=== PATIENT | female | born 1960 | race Caucasian/White ===

== ENCOUNTER 2018-07-23 09:01 | Outpatient (CLI) | payer BC | END 2018-07-23 09:02 | disposition home or self-care (01) | LOC: BICMRI 09:01 | PROVIDERS: ATTEND Family Medicine | DX: Z12.31 Encounter for screening mammogram for malignant neoplasm of breast (principal); M47.22 Other spondylosis with radiculopathy, cervical region; M99.81 Other biomechanical lesions of cervical region; R92.1 Mammographic calcification found on diagnostic imaging of breast | CPT/HCPCS: 72141; 77063; 77067 ==

== ENCOUNTER 2019-03-22 07:36 | Outpatient (CLI) | payer BC ==
--- NOTE | 2019-03-22 08:44 | MRI ---
MRI CERVICAL SPINE WITHOUT IV CONTRAST: HISTORY: M47.12, cervical spondylosis with myelopathy. FINDINGS: There are generalized disk desiccation changes and ligament and facet hypertrophic changes. The visu alized brain and soft tissue neck appear unremarkable. Minimal abnormal marrow signal involving the C6-C7 peridiskal region, evidence for type I endplate changes. C2-C3: No significant canal, lateral recess, or foraminal stenosis. C3-C4: Moderate left foraminal stenosis. C4-C5: Diffuse disk osteophytosis with mild lateral recess narrowing and mild bilateral foraminal st enosis. C5-C6: Moderate generalized disk osteophytosis with mild central canal and moderate lateral recess s tenosis and moderate to severe bilateral foraminal stenosis. C6-C7: Diffuse disk osteophytosis with moderate bilateral recess stenosis, mild central canal stenos is, and moderate left foraminal stenosis. C7-T1: Unremarkable. IMPRESSION: 1. Multilevel variable severity canal, lateral recess, and foraminal stenosis, most marked at C5-C6. 2. Mixed, including some type I, endplate changes at C6-C7. 3. No spinal cord mass or alexander spinal cord compression. POS: [facility]
== END 2019-03-22 07:37 | disposition home or self-care (01) ==
LOC: TBSIIMAG 07:36
PROVIDERS: ATTEND Specialist
DX: M47.12 Other spondylosis with myelopathy, cervical region (principal); M48.02 Spinal stenosis, cervical region
CPT/HCPCS: 72141

== ENCOUNTER 2019-05-13 05:49 | Day surgery (SDC) | payer BC ==
[2019-05-10 15:49] VITALS: BMI 32.9
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
[2019-05-13] MEDS ORDERED: Thrombin 5000 UNITS/5 ML VIAL ONE (06:25)
[2019-05-13] MEDS ORDERED: Midazolam HCl 2 mg/2 ml Vial ONE (06:54)
[2019-05-13] MEDS ORDERED: Fentanyl 100 MCG/2 ML VIAL ONE ×3 (06:54→08:39)
[2019-05-13] MEDS ORDERED: Morphine 4 MG/ML VIAL ONE (08:47)
[2019-05-13] MEDS ORDERED: Morphine 2 MG/ML SYRINGE ONE (08:56)
[2019-05-13] MEDS ORDERED: HYDROcodone/Acetaminophen 5/325 mg Tablet ONE (10:26)
--- NOTE | 2019-05-13 11:48 | OP ---
DATE OF PROCEDURE: 05/13/2019 DAYCARE DIRECTOR: Chaparro Mora PA-C INDICATION: Pain. DIAGNOSIS: Cervical stenosis with cervical radiculopathy and prior evidence of cervical spinal cord injury. PROCEDURES PERFORMED: Anterior cervical discectomy and fusion, C5 to C7. ANESTHESIA: General. DESCRIPTION OF PROCEDURE: The patient was brought into the operating room and placed under general anesthesia. She was placed on the table in a supine position. A transverse incision was planned over the lateral aspect of the neck on the right. After prepping and draping and after an appropriate preoperative pause, the incision was created. The platysma muscle was identified and incised. A blunt tissue plane anterior to the sternocleidomastoid muscle was used to gain access to the prevertebral space. A self-retaining retractor was then placed within the wound. A C-arm image was obtained to confirm the appropriate level. After confirming the appropriate level, annulotomy was performed at the C6-C7 disk space. All disk material as well as anterior and posterior osteophytes were removed. After complete decompression, a 7-mm lordotic PEEK cage packed with allograft and autograft material was placed in the interbody space. We then redirected our attention to the level above at C5-C6, where again an annulotomy was performed. All disk material as well as anterior and posterior osteophytes were removed. After complete decompression, a 6-mm lordotic PEEK cage packed with allograft and autograft material was placed in the interbody space. An anterior cervical plate was then fashioned to the front of spine and secured with a total of 6 screws. Midline and lateral structures were inspected and found to be free from significant trauma. The wound was irrigated. Hemostasis was maintained throughout. The wound was then closed in anatomic layers and a pressure dressing was applied. There were no known procedural complications. Job ID: [id number]
[2019-05-13] MEDS ORDERED: PROPOFOL 200 MG/20 ML VIAL ONE (16:37)
[2019-05-13] MEDS ORDERED: Glycopyrrolate 0.2 MG/ML 5 ML SYRINGE ONE (16:37)
[2019-05-13] MEDS ORDERED: Rocuronium Bromide 10 MG/ML (10ML VIAL) ONE (16:37)
[2019-05-13] MEDS ORDERED: Dexamethasone 20 MG/5 ML VIAL ONE (16:37)
[2019-05-13] MEDS ORDERED: PHENYLEPHRINE-NS 100 MCG/ML 10 ML SYRINGE ONE (16:37)
[2019-05-13] MEDS ORDERED: Lidocaine 1% PF 5 ML VIAL ONE (16:37)
[2019-05-13] MEDS ORDERED: Ondansetron PF 4 MG/2 ML Vial ONE (16:37)
[2019-05-13] MEDS ORDERED: Esmolol 100 MG/10 ML VIAL ONE (16:37)
[2019-05-13] MEDS ORDERED: ePHEDrine 50 MG/ML VIAL ONE (16:37)
== END 2019-05-13 11:04 | disposition home or self-care (01) ==
LOC: SDC 05:49
PROVIDERS: ATTEND Neurological Surgery
DX: M48.02 Spinal stenosis, cervical region (principal); M54.12 Radiculopathy, cervical region; G99.2 Myelopathy in diseases classified elsewhere; E78.00 Pure hypercholesterolemia, unspecified; I25.10 Atherosclerotic heart disease of native coronary artery without angina pectoris; E11.9 Type 2 diabetes mellitus without complications; F17.200 Nicotine dependence, unspecified, uncomplicated; G47.33 Obstructive sleep apnea (adult) (pediatric); Z79.82 Long term (current) use of aspirin; Z79.899 Other long term (current) drug therapy; Z88.8 Allergy status to other drugs, medicaments and biological substances; Z99.89 Dependence on other enabling machines and devices
CPT/HCPCS: 76000; C1713; C1776; J0690; J2250; J2270; J3010

== ENCOUNTER 2019-08-26 16:04 | Outpatient (CLI) | payer BC ==
--- NOTE | 2019-08-26 16:37 | MMO ---
Bilateral MAMMO Bilat Screen [facility]. CLINICAL HISTORY: Patient is 59 years old and is seen for screening. The patient has no family history of breast cancer. The patient has no personal history of cancer. VIEWS: The views performed were: bilateral craniocaudal with tomosynthesis and bilateral mediolateral oblique with tomosynthesis. FILMS COMPARED: The present examination has been compared to prior imaging studies performed at [facility] on 07/23/2018, and at [facility] on 07/30/2010, 02/27/2012 and 03/18/2014. This study has been interpreted with the assistance of computer-aided detection. MAMMOGRAM FINDINGS: There are scattered fibroglandular densities. There are stable benign appearing calcifications seen in the right breast. There are no suspicious masses, suspicious calcifications, or new areas of architectural distortion. IMPRESSION: THERE IS NO MAMMOGRAPHIC EVIDENCE OF MALIGNANCY. A ROUTINE FOLLOW-UP MAMMOGRAM IN 1 YEAR IS RECOMMENDED. THE RESULTS OF THIS EXAM WERE SENT TO THE PATIENT. ACR BI-RADS Category 2 - Benign finding MAMMOGRAPHY NOTE: 1. A negative mammogram report should not delay a biopsy if a dominant of clinically suspicious mass is present. 2. Approximately 10% to 15% of breast cancers are not detected by mammography. 3. Adenosis and dense breasts may obscure an underlying neoplasm. Reported by: KELLY PUENTE MD Electonically Signed: [id number]
== END 2019-08-26 16:05 | disposition home or self-care (01) ==
LOC: BICMAMMO 16:04
PROVIDERS: ATTEND Family Medicine
DX: Z12.31 Encounter for screening mammogram for malignant neoplasm of breast (principal)
CPT/HCPCS: 77063; 77067

== ENCOUNTER 2021-06-15 11:19 | Outpatient (CLI) | payer BC | END 2021-06-15 11:20 | disposition home or self-care (01) | LOC: BICMAMMO 11:19 | PROVIDERS: ATTEND Family Medicine | DX: Z12.31 Encounter for screening mammogram for malignant neoplasm of breast (principal) | CPT/HCPCS: 77063; 77067 ==

== ENCOUNTER 2023-10-26 12:50 | Outpatient (CLI) | payer BC | END 2023-10-26 12:51 | disposition home or self-care (01) | LOC: BICMRI 12:50 | PROVIDERS: ATTEND Nurse Practitioner Family | DX: M47.22 Other spondylosis with radiculopathy, cervical region (principal); M25.78 Osteophyte, vertebrae; Z98.1 Arthrodesis status | CPT/HCPCS: 72141 ==